=== PATIENT | female | born 1995 | race Caucasian/White ===

== ENCOUNTER 2017-03-11 15:04 | Emergency (ER) | payer BC ==
--- NOTE | 2017-03-11 15:36 | Emergency Department Record ---
History of Present Illness - General Chief Complaint: Shortness of breath Stated Complaint: PABLITO Time Seen by Provider: 03/11/17 15:08 Source: Patient, RN notes reviewed Mode of Arrival: Ambulatory - History of Present Illness Initial Comments: short of breath for three days and it feels like it is hard to take a breath. Patient started a diet pill on thursday(2 days ago) and this breathing problem started 3 days ago and she is under stress because of new job she is starting and it requires driving and she is terrified of driving. MD Complaint: Shortness of breath Onset/Timin -: Days(s) Improves With: Nothing Worsens With: Nothing Associated Symptoms: Denies other symptoms Treatments Prior to Arrival: None - Related Data Home Medications Medication Instructions Recorded Confirmed Last Taken Phentermine HCl 37.5 mg PO ASDIR 03/11/17 03/11/17 Unknown Topiramate 25Mg Tablet [Topiramate] 25 mg PO DAILY 03/11/17 03/11/17 Unknown Previous Rx's Medication Instructions Recorded Hydroxyzine HCl [Atarax] 25 mg PO QID #14 tablet 03/11/17 Allergies Allergy/AdvReac Type Severity Reaction Status Date / Time No Known Drug Allergies Allergy Verified 03/11/17 15:11 Travel Screening - Travel/Exposure Within Last 30 Days Have you traveled within the last 30 days?: No Review of Systems Reviewed: No additional complaints except as noted below Constitutional: Reports: As per HPI. Denies: Chills, Fever, Malaise, Night sweats, Weakness, Weight change Eyes: Reports: As per HPI. Denies: Eye discharge, Eye pain, Photophobia, Vision change ENT: Reports: As per HPI. Denies: Congestion, Dental pain, Ear pain, Epistaxis , Hearing loss, Throat pain Respiratory: Reports: As per HPI. Denies: Cough, Dyspnea, Hemoptysis, Stridor, Wheezes Cardiovascular: Reports: As per HPI. Denies: Arrhythmia, Chest pain, Dyspnea on exertion, Edema, Murmurs, Orthopnea, Palpitations, Paroxysmal nocturnal dyspnea, Rheumatic Fever, Syncope Endocrine: Reports: As per HPI. Denies: Fatigue, Heat or cold intolerance, Polydipsia, Polyuria Gastrointestinal: Reports: As per HPI. Denies: Abdominal pain, Constipation, Diarrhea, Hematemesis, Hematochezia, Melena, Nausea, Vomiting Genitourinary: Reports: As per HPI. Denies: Abnormal menses, Discharge, Dyspareunia, Dysuria, Frequency, Hematuria, Incontinence, Retention, Urgency Musculoskeletal: Reports: As per HPI. Denies: Arthralgia, Back pain, Gout, Joint swelling, Myalgia, Neck pain Skin: Reports: As per HPI. Denies: Bruising, Change in color, Change in hair/ nails, Lesions, Pruritus, Rash Neurological: Reports: As per HPI. Denies: Abnormal gait, Confusion, Headache, Numbness, Paresthesias, Seizure, Tingling, Tremors, Vertigo, Weakness Psychiatric: Reports: As per HPI. Denies: Anxiety, Auditory hallucinations, Depression, Homicidal thoughts, Suicidal thoughts, Visual hallucinations Hematological/Lymphatic: Reports: As per HPI. Denies: Anemia, Blood Clots, Easy bleeding, Easy bruising, Swollen glands Past Medical History - SOCIAL HISTORY Smoking Status: Never smoker Alcohol Use: Occasional Drug Use: None - RESPIRATORY Hx Respiratory Disorders: No - CARDIOVASCULAR Hx Cardio Disorders: No - NEURO Hx Neuro Disorders: Yes Hx Headaches: Yes - GI Hx GI Disorders: No - Hx Genitourinary Disorders: No - ENDOCRINE Hx Endocrine Disorders: No - MUSCULOSKELETAL Hx Musculoskeletal Disorders: No - PSYCH Hx Psych Problems: No - HEMATOLOGY/ONCOLOGY Hx Hematology/Oncology Disorders: No Family Medical History Any Significant Family History?: No Hx Diabetes: Mother, Grandparents Hx Heart Disease: Mother, Grandparents Hx HTN: Father Hx Resp Disorders: Grandparents Physical Exam - General General Appearance: Alert, Oriented x3, Cooperative, No acute distress - Head Head exam: Normal inspection - Eye Eye exam: Normal appearance, PERRL Pupils: Normal accommodation - ENT ENT exam: Normal exam, Mucous membranes moist, Normal external ear exam, Normal orophraynx, TM's normal bilaterally Ear exam: Normal external inspection. negative: External canal tenderness Nasal Exam: Normal inspection. negative: Discharge, Sinus tenderness Mouth exam: Normal external inspection, Tongue normal Teeth exam: Normal inspection. negative: Dental caries Throat exam: Normal inspection. negative: Tonsillar erythema, Tonsillar exudate - Neck Neck exam: Normal inspection, Full ROM. negative: Tenderness - Respiratory Respiratory exam: Normal lung sounds bilaterally. negative: Respiratory distress - Cardiovascular Cardiovascular Exam: Regular rate, Normal rhythm, Normal heart sounds - GI/Abdominal GI/Abdominal exam: Soft, Normal bowel sounds. negative: Tenderness - Rectal Rectal exam: Deferred - exam: Deferred - Extremities Extremities exam: Normal inspection, Full ROM, Normal capillary refill. negative: Tenderness - Back Back exam: Reports: Normal inspection, Full ROM. Denies: Muscle spasm, Rash noted, Tenderness - Neurological Neurological exam: Alert, Normal gait, Oriented X3, Reflexes normal - Psychiatric Psychiatric exam: Normal affect, Normal mood - Skin Skin exam: Dry, Intact, Normal color, Warm Course Vital Signs 03/11/17 15:06 Temperature 98.2 F Pulse Rate 98 H Respiratory 20 Rate Blood Pressure 161/88 Pulse Ox 96 Medical Decision Making - Data Complexity MDM Data: Labs Ordered and/or Reviewed, X-Ray Ordered and/or Reviewed (chest xray neg), EKG Ordered and/or Reviewed (No acute changes) - Lab Data Result diagrams: 03/11/17 15:55 03/11/17 15:55 Disposition Clinical Impression: Anxiety Dyspnea Qualifiers: Dyspnea type: unspecified Qualified Code(s): R06.00 - Dyspnea, unspecified Disposition: Home, Self-Care Condition: (1) Good Instructions: Anxiety (ED) Additional Instructions: follow up with Dr. Malave in one week Prescriptions: Hydroxyzine HCl [Atarax] 25 mg PO QID #14 tablet Forms: Patient Portal Access Time of Disposition: 17:06 Quality - Quality Measures Quality Measures: N/A - Blood Pressure Screening Does Patient Have Any of the Following: No Blood Pressure Classification: Pre-Hypertensive BP Reading Systolic Measurement: 161 Diastolic Measurement: 88 Screening for High Blood Pressure: < Pre-Hypertensive BP, F/U Documented > [ G8950] Pre-Hypertensive Follow-up Interventions: Referral to alternative/primary care provider.
[2017-03-11] MEDS ORDERED: LORAZEPAM 2 MG/ML VIAL IV ONE (15:43)
[2017-03-11 16:04] LABS: BASO % 0.2 % (0-6); EOS % 0.6 % (0-6); GRAN % 60.4 % (47-80); HEMOGLOBIN 13.8 gm/dl (11.6-16.0); LYMPH % 32.4 % (16-45); MEAN CELL VOLUME 80.8 fl (81-97); MEAN CORPUSCULAR HEMOGLOBIN 27.9 pg (27-33); MEAN CORPUSCULAR HGB CONC 34.5 g/dl (32-36); MEAN PLATELET VOLUME 10.8 fl (7.4-10.4); MONO % 6.4 % (0-9); PLATELET COUNT 301 K/uL (130-400); RED BLOOD COUNT 4.95 M/uL (3.80-5.40); RED CELL DISTRIBUTION WIDTH 13.1 % (11.5-14.5)
[2017-03-11 16:23] LABS: BLOOD UREA NITROGEN 8 mg/dL (6-20); CREATININE 0.5 mg/dL (0.5-0.9); EST GLOMERULAR FILTRATION RATE > 60 mL/min
[2017-03-11 16:26] LABS: GLUCOSE,RANDOM 90 mg/dL (74-109)
[2017-03-11] MEDS: LORAZEPAM 0.5 MG TABLET PO ONE (16:28)
[2017-03-11 17:02] LABS: URINE APPEARANCE CLEAR; URINE BILIRUBIN NEGATIVE (NEGATIVE); URINE BLOOD TRACE-I (NEGATIVE); URINE COLOR YELLOW; URINE GLUCOSE (UA) NEGATIVE (NEGATIVE); URINE KETONE NEGATIVE (NEGATIVE); URINE LEUKOCYTE ESTERASE NEGATIVE (NEGATIVE); URINE NITRITE NEGATIVE (NEGATIVE); URINE PROTEIN NEGATIVE (NEGATIVE); URINE UROBILINOGEN 0.2 E.U./dL (0.20 - 1.00)
[2017-03-11 17:05] LABS: URINE MUCUS LIGHT; URINE WBC NONE SEEN (0-2/hpf)
--- NOTE | 2017-03-11 17:08 | Emergency Department Record ---
History of Present Illness - General Chief Complaint: Shortness of breath Stated Complaint: PABLITO Time Seen by Provider: 03/11/17 15:08 Source: Patient, RN notes reviewed Mode of Arrival: Ambulatory - History of Present Illness Onset/Timin -: Days(s) Improves With: Nothing Worsens With: Nothing Associated Symptoms: Denies other symptoms Treatments Prior to Arrival: None - Related Data Home Medications Medication Instructions Recorded Confirmed Last Taken Phentermine HCl 37.5 mg PO ASDIR 03/11/17 03/11/17 Unknown Topiramate 25Mg Tablet [Topiramate] 25 mg PO DAILY 03/11/17 03/11/17 Unknown Previous Rx's Medication Instructions Recorded Hydroxyzine HCl [Atarax] 25 mg PO QID #14 tablet 03/11/17 Allergies Allergy/AdvReac Type Severity Reaction Status Date / Time No Known Drug Allergies Allergy Verified 03/11/17 15:11 Travel Screening - Travel/Exposure Within Last 30 Days Have you traveled within the last 30 days?: No Review of Systems Constitutional: Reports: As per HPI. Denies: Chills, Fever, Malaise, Night sweats, Weakness, Weight change Eyes: Reports: As per HPI. Denies: Eye discharge, Eye pain, Photophobia, Vision change ENT: Reports: As per HPI. Denies: Congestion, Dental pain, Ear pain, Epistaxis , Hearing loss, Throat pain Respiratory: Reports: As per HPI. Denies: Cough, Dyspnea, Hemoptysis, Stridor, Wheezes Cardiovascular: Reports: As per HPI. Denies: Arrhythmia, Chest pain, Dyspnea on exertion, Edema, Murmurs, Orthopnea, Palpitations, Paroxysmal nocturnal dyspnea, Rheumatic Fever, Syncope Endocrine: Reports: As per HPI. Denies: Fatigue, Heat or cold intolerance, Polydipsia, Polyuria Gastrointestinal: Reports: As per HPI. Denies: Abdominal pain, Constipation, Diarrhea, Hematemesis, Hematochezia, Melena, Nausea, Vomiting Genitourinary: Reports: As per HPI. Denies: Abnormal menses, Discharge, Dyspareunia, Dysuria, Frequency, Hematuria, Incontinence, Retention, Urgency Musculoskeletal: Reports: As per HPI. Denies: Arthralgia, Back pain, Gout, Joint swelling, Myalgia, Neck pain Skin: Reports: As per HPI. Denies: Bruising, Change in color, Change in hair/ nails, Lesions, Pruritus, Rash Neurological: Reports: As per HPI. Denies: Abnormal gait, Confusion, Headache, Numbness, Paresthesias, Seizure, Tingling, Tremors, Vertigo, Weakness Psychiatric: Reports: As per HPI. Denies: Anxiety, Auditory hallucinations, Depression, Homicidal thoughts, Suicidal thoughts, Visual hallucinations Hematological/Lymphatic: Reports: As per HPI. Denies: Anemia, Blood Clots, Easy bleeding, Easy bruising, Swollen glands Past Medical History - SOCIAL HISTORY Smoking Status: Never smoker Alcohol Use: Occasional Drug Use: None - RESPIRATORY Hx Respiratory Disorders: No - CARDIOVASCULAR Hx Cardio Disorders: No - NEURO Hx Neuro Disorders: Yes Hx Headaches: Yes - GI Hx GI Disorders: No - Hx Genitourinary Disorders: No - ENDOCRINE Hx Endocrine Disorders: No - MUSCULOSKELETAL Hx Musculoskeletal Disorders: No - PSYCH Hx Psych Problems: No - HEMATOLOGY/ONCOLOGY Hx Hematology/Oncology Disorders: No Family Medical History Any Significant Family History?: No Hx Diabetes: Mother, Grandparents Hx Heart Disease: Mother, Grandparents Hx HTN: Father Hx Resp Disorders: Grandparents Course Vital Signs 03/11/17 15:06 Temperature 98.2 F Pulse Rate 98 H Respiratory 20 Rate Blood Pressure 161/88 Pulse Ox 96 Medical Decision Making - Lab Data Result diagrams: 03/11/17 15:55 03/11/17 15:55 Lab Results 03/11/17 03/11/17 03/11/17 Range/Units 15:55 15:55 16:50 WBC 5.0 (4.2-12.2) K/uL RBC 4.95 (3.80-5.40) M/uL Hgb 13.8 (11.6-16.0) gm/dl Hct 40.0 (35.0-47.0) % MCV 80.8 L (81-97) fl MCH 27.9 (27-33) pg MCHC 34.5 (32-36) g/dl RDW 13.1 (11.5-14.5) % Plt Count 301 (130-400) K/uL MPV 10.8 H (7.4-10.4) fl Gran % 60.4 (47-80) % Lymphocytes % 32.4 (16-45) % Monocytes % 6.4 (0-9) % Eosinophils % 0.6 (0-6) % Basophils % 0.2 (0-6) % Sodium 140 (136-145) mmol/L Potassium 4.0 (3.4-4.5) mmol/L Chloride 103 (98-107) mmol/L Carbon Dioxide 22.0 (22-29) mmol/L Anion Gap 15.0 (7-16) BUN 8 (6-20) mg/dL Creatinine 0.5 (0.5-0.9) mg/dL Estimated GFR > 60 mL/min Random Glucose 90 (74-109) mg/dL Calcium 9.1 (8.6-10.0) mg/dL Troponin T < 0.010 (0-0.010) ng/mL Urine Color Yellow Urine Appearance Clear Urine pH 6.0 (5.0-8.0) Ur Specific Drums 1.025 (1.002-1.030) Urine Protein Negative (NEGATIVE) Urine Glucose (UA) Negative (NEGATIVE) Urine Ketones Negative (NEGATIVE) Urine Blood Trace-i (NEGATIVE) Urine Nitrite Negative (NEGATIVE) Urine Bilirubin Negative (NEGATIVE) Urine Urobilinogen 0.2 (0.20 - 1.00) E.U./dL Ur Leukocyte Esterase Negative (NEGATIVE) Urine RBC 3 - 6 (NONE SEEN) Urine WBC None seen (0-2/hpf) Ur Epithelial Cells 10 - 15 (FEW) Urine Mucus Light Disposition Clinical Impression: Anxiety Dyspnea Qualifiers: Dyspnea type: unspecified Qualified Code(s): R06.00 - Dyspnea, unspecified Disposition: Home, Self-Care Condition: (1) Good Instructions: Anxiety (ED) Additional Instructions: follow up with Dr. Malave in one week Prescriptions: Hydroxyzine HCl [Atarax] 25 mg PO QID #14 tablet Forms: Patient Portal Access Time of Disposition: 17:07 Quality - Quality Measures Quality Measures: N/A - Blood Pressure Screening Does Patient Have Any of the Following: No Blood Pressure Classification: Pre-Hypertensive BP Reading Systolic Measurement: 161 Diastolic Measurement: 88 Screening for High Blood Pressure: < Pre-Hypertensive BP, F/U Documented > [ G8950] Pre-Hypertensive Follow-up Interventions: Referral to alternative/primary care provider.
--- NOTE | 2017-03-12 09:34 | RADIOLOGY REPORT ---
EXAM: CHEST, TWO VIEWS HISTORY: PATIENT HAS SHORTNESS OF BREATH. TECHNIQUE: Two views of the chest are provided without comparison examinations. FINDINGS: The cardiomediastinal silhouette is within normal limits for size and contour. The nancy appear unremarkable. There is no radiographic evidence of a focal infiltrate or pleural effusion. No pneumothorax is noted. IMPRESSION: NO RADIOGRAPHIC EVIDENCE OF AN ACUTE INTRATHORACIC PROCESS. JOB NUMBER: [id number] [facility]
== END 2017-03-11 17:32 | disposition home or self-care (01) ==
LOC: ER 15:04
DX: R06.00 Dyspnea, unspecified (principal); F41.9 Anxiety disorder, unspecified
CPT/HCPCS: 71046; 80048; 81001; 84484; 85025; 93005; 93010; 99284

== ENCOUNTER 2017-08-19 21:48 | Emergency (ER) | payer BC, MEDICAID ==
[2017-08-19] MEDS ORDERED: 0.9 % SODIUM CHLORIDE 1,000 ML BAG IV ONE (22:00)
[2017-08-19] MEDS ORDERED: ONDANSETRON HCL IV 4 MG/2 ML VIAL IVP ONE (22:00)
--- NOTE | 2017-08-19 22:06 | Emergency Department Record ---
History of Present Illness - General Chief complaint: Flank Pain Stated complaint: RT FLANK PAIN Time Seen by Provider: 08/19/17 22:00 Source: Patient Mode of Arrival: Ambulatory Limitations: No limitations - History of Present Illness Initial comments: 21 yo female presents with right flank and RUQ pain for two days. The pain level goes up and down but never leaves. No fever. She has nausea but no vomiting. Eating makes the symptoms worse. No diarrhea. No dysuria. No hematuria. She does have a decreased appetite. No rash. No cough. Her prior history is positive for C section otherwise no abdominal surgery. MD Complaint: Other Onset/Timin -: Days(s) (2) Radiation: R flank, Other Severity: Moderate Severity scale (1-10): 7 Quality: Sharp Consistency: Constant Improves with: Other Worsens with: None Associated Symptoms: Abdominal pain, Nausea/vomiting - Related Data Home Medications Medication Instructions Recorded Confirmed Last Taken Escitalopram Oxalate [Lexapro] 10 mg PO DAILY 08/19/17 08/19/17 Unknown Etonogestrel/Ethinyl Estradiol 1 applic VG DAILY 08/19/17 08/19/17 Unknown [Nuvaring Vaginal Ring] Allergies Allergy/AdvReac Type Severity Reaction Status Date / Time No Known Drug Allergies Allergy Verified 03/11/17 15:11 Travel Screening - Travel/Exposure Within Last 30 Days Have you traveled within the last 30 days?: No - Travel Symptoms Symptom Screening: None Review of Systems Constitutional: Denies: Chills, Fever, Malaise, Weakness Eyes: Denies: Eye discharge, Eye pain, Photophobia, Vision change ENT: Denies: Congestion, Throat pain Respiratory: Denies: Cough, Dyspnea, Hemoptysis, Stridor, Wheezes Cardiovascular: Denies: Chest pain, Palpitations, Syncope Endocrine: Denies: Fatigue, Polydipsia, Polyuria Gastrointestinal: Reports: As per HPI, Abdominal pain, Nausea. Denies: Diarrhea , Vomiting Genitourinary: Denies: Dysuria, Urgency Musculoskeletal: Reports: Back pain. Denies: Arthralgia, Joint swelling, Myalgia Skin: Denies: Bruising, Change in color, Rash Neurological: Denies: Confusion, Headache, Numbness, Weakness Psychiatric: Denies: Anxiety Hematological/Lymphatic: Denies: Anemia, Blood Clots, Easy bleeding, Easy bruising, Swollen glands Past Medical History - SOCIAL HISTORY Smoking Status: Never smoker - RESPIRATORY Hx Respiratory Disorders: No - CARDIOVASCULAR Hx Cardio Disorders: Yes Hx Palpitations: Yes - NEURO Hx Neuro Disorders: Yes Hx Headaches: Yes - GI Hx GI Disorders: No - Hx Genitourinary Disorders: No - ENDOCRINE Hx Endocrine Disorders: No - MUSCULOSKELETAL Hx Musculoskeletal Disorders: No - PSYCH Hx Psych Problems: Yes Hx Anxiety: Yes - HEMATOLOGY/ONCOLOGY Hx Hematology/Oncology Disorders: No Family Medical History Any Significant Family History?: Yes Hx Diabetes: Mother, Grandparents Hx Heart Disease: Mother, Grandparents Hx HTN: Father Hx Resp Disorders: Grandparents Physical Exam - General General Appearance: Alert, Oriented x3, Cooperative, No acute distress Limitations: No limitations - Head Head exam: Atraumatic, Normal inspection - Eye Eye exam: Normal appearance. negative: Conjunctival injection, Scleral icterus - ENT ENT exam: Normal exam, Mucous membranes moist Ear exam: Normal external inspection Nasal Exam: Normal inspection Mouth exam: Normal external inspection - Neck Neck exam: Normal inspection - Respiratory Respiratory exam: Normal lung sounds bilaterally. negative: Respiratory distress - Cardiovascular Cardiovascular Exam: Regular rate, Normal rhythm, Normal heart sounds - GI/Abdominal GI/Abdominal exam: Soft, Tenderness (tender RUQ, right flank) - Rectal Rectal exam: Deferred - exam: Deferred - Extremities Extremities exam: Normal inspection, Full ROM, Normal capillary refill. negative: Tenderness - Back Back exam: Reports: CVA tenderness (R), Full ROM. Denies: CVA tenderness (L), Paraspinal tenderness, Rash noted, Tenderness, Vertebral tenderness - Neurological Neurological exam: Alert, Normal gait, Oriented X3 - Psychiatric Psychiatric exam: Normal affect, Normal mood. negative: Agitated, Anxious - Skin Skin exam: Dry, Intact, Normal color, Warm Course Vital Signs 08/19/17 21:55 Temperature 98.2 F Pulse Rate [ 103 H Pulse Ox Probe] Respiratory 20 Rate Blood Pressure 125/73 [Left Arm] Pulse Ox 99 - Reevaluation(s) Reevaluation #1: 08/19/17 22:07 No prior imaging on EMR 08/19/17 22:50 No acute changes on the labs The HCG is negative 08/20/17 00:05 UA with some blood CT ordered for stone 08/20/17 01:[address] was reviewed. LEFT sided intrarenal stone. No findings to suggest appendicitis. Unremarkable gall bladder. We discussed the results of the tests and questions were answered at the time of discharge. The patient is doing well and is comfortable with DC. DC vitals were reviewed. We discussed at length reasons to immediately return to the ED as well as close follow up. The patient will call the PCP for close follow up of this ED visit to review this visit and the tests performed We discussed that an abdominal US may also help to view the gall bladder in a different way to assess if this is causing her pain. 08/20/17 01:37 Given her pain never completely leaves and is aggravated by food she will return for an US in the AM 08/20/17 01:42 Medical Decision Making - Lab Data Result diagrams: 08/19/17 22:15 08/19/17 22:15 Disposition Disposition: Discharge Clinical Impression: Acute flank pain, RUQ pain Disposition: Home, Self-Care Condition: (1) Good Instructions: Abdominal Pain (ED), Flank Pain (ED) Additional Instructions: Return at 9am for a recheck and abdominal US Return sooner if you have fever, vomiting or pain Do not eat from now until your US Forms: Patient Portal Access Time of Disposition: 01:46 Quality - Quality Measures Quality Measures: N/A - Blood Pressure Screening Does Patient Have Any of the Following: No Blood Pressure Classification: Pre-Hypertensive BP Reading Systolic Measurement: 113 Diastolic Measurement: 82 Screening for High Blood Pressure: < Pre-Hypertensive BP, F/U Documented > [ G8950] Pre-Hypertensive Follow-up Interventions: Referral to alternative/primary care provider.
[2017-08-19 22:25] LABS: BASO % 0.3 % (0-6); EOS % 0.3 % (0-6); GRAN % 62.6 % (47-80); HEMATOCRIT 42.7 % (35.0-47.0); HEMOGLOBIN 14.4 gm/dl (11.6-16.0); LYMPH % 30.5 % (16-45); MEAN CELL VOLUME 83.1 fl (81-97); MEAN CORPUSCULAR HGB CONC 33.7 g/dl (32-36); MEAN PLATELET VOLUME 10.8 fl (7.4-10.4); MONO % 6.3 % (0-9); PLATELET COUNT 281 K/uL (130-400); RED BLOOD COUNT 5.14 M/uL (3.80-5.40); RED CELL DISTRIBUTION WIDTH 13.5 % (11.5-14.5); WHITE BLOOD COUNT W/O DIFF 6.9 K/uL (4.2-12.2)
[2017-08-19 22:37] LABS: BLOOD UREA NITROGEN 6 mg/dL (6-20); CREATININE 0.6 mg/dL (0.5-0.9); EST GLOMERULAR FILTRATION RATE > 60 mL/min
[2017-08-19 22:38] LABS: TOTAL PROTEIN 7.2 g/dL (6.6-8.7)
[2017-08-19 22:40] LABS: GLUCOSE,RANDOM 128 mg/dL (74-109)
[2017-08-19 22:42] LABS: ALT/SGPT 14 U/L (<33)
[2017-08-19 22:43] LABS: ALB/GLOB RATIO 1.4 (1.1-1.8); ALBUMIN 4.2 g/dL (4.0-5.0); ALKALINE PHOSPHATASE 91 U/L (35-104); AST/SGOT 15 U/L (10.0-35.0); LIPASE 39 U/L (13-60)
[2017-08-19 23:45] LABS: URINE APPEARANCE CLEAR; URINE BILIRUBIN NEGATIVE (NEGATIVE); URINE BLOOD TRACE-I (NEGATIVE); URINE COLOR YELLOW; URINE GLUCOSE (UA) NEGATIVE (NEGATIVE); URINE KETONE NEGATIVE (NEGATIVE); URINE LEUKOCYTE ESTERASE NEGATIVE (NEGATIVE); URINE NITRITE NEGATIVE (NEGATIVE); URINE PROTEIN NEGATIVE (NEGATIVE); URINE UROBILINOGEN 0.2 E.U./dL (0.20 - 1.00)
[2017-08-19 23:46] LABS: URINE BACTERIA NONE SEEN; URINE EPITHELIAL CELLS 0 - 2 (FEW); URINE WBC 0 - 2 (0-2/hpf)
--- NOTE | 2017-08-20 15:26 | CT SCAN REPORT ---
EXAM: CT OF THE ABDOMEN AND PELVIS WITHOUT CONTRAST HISTORY: RIGHT UPPER QUADRANT PAIN. TECHNIQUE: Sequential axial images were obtained from the diaphragms through the ischiorectal fossa without intravenous or oral contrast administration. FINDINGS: The visualized lung bases appear normal. The heart size is in the upper limits of normal. The nonopacified liver, gallbladder, pancreas and spleen appear normal. The adrenal glands and kidneys appear normal. There is a nonobstructing calculus in the left kidney measuring 2 mm. The small bowel appears normal. The appendix is visualized and appears normal. The colon appears normal. The uterus and adnexal structures are normal. The urinary bladder is normal. The gaseous structures are normal. IMPRESSION: NONOBSTRUCTING CALCULUS IN THE LEFT KIDNEY. THE REMAINDER OF THE EXAMINATION IS UNREMARKABLE. JOB NUMBER: [id number] [facility]
== END 2017-08-20 01:54 | disposition home or self-care (01) ==
LOC: ER 21:48
DX: R10.11 Right upper quadrant pain (principal); M54.6 Pain in thoracic spine; R11.0 Nausea
CPT/HCPCS: 74176; 80053; 81001; 83690; 84703; 85025; 96374; 99284; J2405; J7030

== ENCOUNTER 2017-08-20 08:50 | Emergency (ER) | payer BC, MEDICAID ==
--- NOTE | 2017-08-20 09:16 | Emergency Department Record ---
History of Present Illness - General Chief Complaint: Recheck - Other Stated Complaint: RUQ PAIN Time Seen by Provider: 08/20/17 08:57 Source: Patient Mode of arrival: Ambulatory Limitations: No limitations - History of Present Illness Initial Comments: The patient is here for recheck due to RUQ AP. The pain is worse after eating and is a sharp cramping pain. She was seen in the ER last night and had a neg workup including labs, urine, and an abdominal CT. Now she is here to have an abdominal US to evaluate her GB. Complaint: Other Onset/Timin -: Days(s) Initial Visit For: Other Returns Today for: Other Symptoms Since Prior Visit: No new symptoms Associated Symptoms: Abdominal pain - Related Data Previous Rx's Medication Instructions Recorded Naproxen [Naprosyn] 250 mg PO BID #14 tablet 08/20/17 Sucralfate [Carafate] 1 gm PO QID #28 tablet 08/20/17 Allergies Allergy/AdvReac Type Severity Reaction Status Date / Time No Known Drug Allergies Allergy Verified 08/20/17 08:54 Travel Screening - Travel/Exposure Within Last 30 Days Have you traveled within the last 30 days?: No - Travel/Exposure Within Last Year Have you traveled outside the [place] in the last year?: No - Additonal Travel Details Have you been exposed to anyone with a communicable illness?: No - Travel Symptoms Symptom Screening: None Review of Systems Constitutional: Denies: Chills, Fever Eyes: Denies: Eye discharge ENT: Denies: Congestion Respiratory: Denies: Cough, Dyspnea Past Medical History - SOCIAL HISTORY Smoking Status: Never smoker Alcohol Use: Occasional Drug Use: None - RESPIRATORY Hx Respiratory Disorders: No - CARDIOVASCULAR Hx Cardio Disorders: Yes Hx Palpitations: Yes - NEURO Hx Neuro Disorders: Yes Hx Headaches: Yes - GI Hx GI Disorders: No - Hx Genitourinary Disorders: No - ENDOCRINE Hx Endocrine Disorders: No - MUSCULOSKELETAL Hx Musculoskeletal Disorders: No - PSYCH Hx Psych Problems: Yes Hx Anxiety: Yes - HEMATOLOGY/ONCOLOGY Hx Hematology/Oncology Disorders: No Family Medical History Any Significant Family History?: Yes Hx Diabetes: Mother, Grandparents Hx Heart Disease: Mother, Grandparents Hx HTN: Father Hx Resp Disorders: Grandparents Physical Exam - General General Appearance: Alert, Oriented x3, Cooperative, No acute distress - Head Head exam: Atraumatic, Normocephalic, Normal inspection - Eye Eye exam: Normal appearance, PERRL - Neck Neck exam: Normal inspection, Full ROM. negative: Tenderness - Respiratory Respiratory exam: Normal lung sounds bilaterally. negative: Respiratory distress - Cardiovascular Cardiovascular Exam: Regular rate, Normal rhythm, Normal heart sounds - GI/Abdominal GI/Abdominal exam: Soft, Tenderness (There is mild RUQ tenderness to palpation.) . negative: Distended, Rigid - Extremities Extremities exam: Normal inspection Course Vital Signs 08/20/17 08:55 Temperature 98.3 F Pulse Rate 78 Respiratory 16 Rate Blood Pressure 119/69 Pulse Ox 99 - Reevaluation(s) Reevaluation #1: The patient is doing better at this time and is resting comfortably. She is still having some pain but it is better. We did discuss the neg US and the need for F/U with her PCP early next week. 08/20/17 11:10 Medical Decision Making - Data Complexity MDM Data: X-Ray Ordered and/or Reviewed - Radiology Data Radiology results: Report reviewed (Abd US: Neg) Disposition Disposition: Discharge Clinical Impression: RUQ pain Disposition: Home, Self-Care Condition: (2) Stable Instructions: Abdominal Pain (ED) Additional Instructions: Please eat a very bland diet with no fatty or fried foods. Please see your family doctor early next week for recheck and take the Naprosyn and Carafate as directed. Please return to the ER for any worsening abdominal pain, fever, or vomiting. Prescriptions: Naproxen [Naprosyn] 250 mg PO BID #14 tablet Sucralfate [Carafate] 1 gm PO QID #28 tablet Forms: Patient Portal Access Time of Disposition: 11:12 Quality - Quality Measures Quality Measures: N/A - Blood Pressure Screening View Details: Yes Does Patient Have Any of the Following: No Blood Pressure Classification: Normal BP Reading Systolic Measurement: 115 Diastolic Measurement: 73 Screening for High Blood Pressure: < Normal BP, F/U Not Required > [G8783]
--- NOTE | 2017-08-21 07:58 | ULTRASOUND REPORT ---
EXAM: ULTRASOUND OF THE ABDOMEN HISTORY: RIGHT UPPER QUADRANT PAIN. TECHNIQUE: Sonographic evaluation of the abdomen was performed using cohen scale imaging. FINDINGS: The liver appears homogeneous. No gallstones or ductal dilatation. The common bile duct measures 3 mm. The pancreas and spleen appear normal. The kidneys are normal in size with no hydronephrosis or nephrolithiasis. The abdominal aorta and inferior vena cava are patent. No free fluid in the abdomen. IMPRESSION: UNREMARKABLE ABDOMINAL SONOGRAM. JOB NUMBER: [id number] [facility]
== END 2017-08-20 11:19 | disposition home or self-care (01) ==
LOC: ER 08:50
DX: R10.11 Right upper quadrant pain (principal)
CPT/HCPCS: 76700; 99283

== ENCOUNTER 2018-02-13 12:18 | Observation (INO) | payer BC, MEDICAID ==
[2018-02-13] MEDS ORDERED: IPRATROPIUM/ALBUTEROL (0.5MG/3MG) NEB INH ONE (12:45)
--- NOTE | 2018-02-13 12:52 | Emergency Department Record ---
History of Present Illness - General Chief Complaint: Difficulty Breathing Stated Complaint: SOB, CHEST PRESSURE Time Seen by Provider: 02/13/18 12:40 Source: Patient Mode of Arrival: Ambulatory Limitations: No limitations - History of Present Illness Initial Comments: The patient is here due to a 10 day hx of feeling like she is not able to take a full breath in. She denies any cough, SOB, PABLITO, or sweating but does have a mid back aching when lying flat. She also denies any pleuritic CP but just feels like her lungs will not expand normally. The patient has had this in the past and was told it was anxiety. She did see her PCP for it and also was told it was anxiety recently. MD Complaint: Shortness of breath Onset/Timin -: Days(s), Week(s) Severity scale (1-10): 4 Quality: Aching Consistency: Constant Improves With: Nothing Worsens With: Lying flat Associated Symptoms: Denies other symptoms Treatments Prior to Arrival: None - Related Data Home Oxygen Therapy: No Allergies Allergy/AdvReac Type Severity Reaction Status Date / Time No Known Drug Allergies Allergy Verified 02/13/18 12:32 Travel Screening - Travel/Exposure Within Last 30 Days Have you traveled within the last 30 days?: No - Travel/Exposure Within Last Year Have you traveled outside the [place] in the last year?: No - Additonal Travel Details Have you been exposed to anyone with a communicable illness?: No - Travel Symptoms Symptom Screening: None Review of Systems Constitutional: Denies: Chills, Fever Eyes: Denies: Eye discharge ENT: Denies: Congestion Respiratory: Reports: Dyspnea. Denies: Cough, Hemoptysis Cardiovascular: Denies: Chest pain Endocrine: Denies: Fatigue Gastrointestinal: Denies: Abdominal pain Genitourinary: Denies: Dysuria Musculoskeletal: Denies: Arthralgia Skin: Denies: Bruising Past Medical History - SOCIAL HISTORY Smoking Status: Never smoker Alcohol Use: Occasional Drug Use: None - RESPIRATORY Hx Respiratory Disorders: No - CARDIOVASCULAR Hx Cardio Disorders: Yes Hx Palpitations: Yes - NEURO Hx Neuro Disorders: Yes Hx Headaches: Yes - GI Hx GI Disorders: No - Hx Genitourinary Disorders: No - ENDOCRINE Hx Endocrine Disorders: No - MUSCULOSKELETAL Hx Musculoskeletal Disorders: No - PSYCH Hx Psych Problems: Yes Hx Anxiety: Yes - HEMATOLOGY/ONCOLOGY Hx Hematology/Oncology Disorders: No Family Medical History Any Significant Family History?: Yes Hx Diabetes: Mother, Grandparents Hx Heart Disease: Mother, Grandparents Hx HTN: Father Hx Resp Disorders: Grandparents Physical Exam - General General Appearance: Alert, Oriented x3, Cooperative, No acute distress - Head Head exam: Atraumatic, Normocephalic, Normal inspection - Eye Eye exam: Normal appearance, PERRL, EOMI - ENT Throat exam: Normal inspection. negative: Tonsillar erythema, Tonsillar exudate - Neck Neck exam: Normal inspection, Full ROM. negative: Tenderness - Respiratory Respiratory exam: Normal lung sounds bilaterally. negative: Rales, Respiratory distress, Rhonchi, Stridor, Wheezes - Cardiovascular Cardiovascular Exam: Regular rate, Normal rhythm, Normal heart sounds - GI/Abdominal GI/Abdominal exam: Soft, Normal bowel sounds. negative: Tenderness - Extremities Extremities exam: Normal inspection, Full ROM, Normal capillary refill. negative: Tenderness - Neurological Neurological exam: Alert. negative: Motor sensory deficit Course Vital Signs 02/13/18 02/13/18 12:33 12:44 Temperature 983 F H 98 F Pulse Rate 87 87 Respiratory 18 18 Rate Blood Pressure 127/87 127/87 Pulse Ox 98 98 - Reevaluation(s) Reevaluation #1: The patient is resting comfortably. She denies any new complaints and denies any CP or SOB. The Neb tx did not seem to change her symptoms. 02/13/18 13:58 Reevaluation #2: The patient is doing very well at this time. I did discuss the positive PE study with her and the need for admission to the hospital and the patient does agree. I then did discuss the case with Yaneli (PRODUCT SAF[employer]Y CONSULTANT) and she does accept the admission for Dr. Posadas. 02/13/18 15:51 Medical Decision Making - Data Complexity MDM Data: Labs Ordered and/or Reviewed, X-Ray Ordered and/or Reviewed, EKG Ordered and/or Reviewed - Lab Data Result diagrams: 02/13/18 13:00 02/13/18 13:00 - EKG Data -: EKG Interpreted by Me EKG: No Acute Changes, Normal EKG - Radiology Data Radiology results: Report reviewed (CXR: Neg. Chest CT: 2 small distal LLL PE' s. ) Disposition Disposition: Admit Clinical Impression: Pulmonary embolism Qualifiers: Pulmonary embolism type: other Chronicity: unspecified Acute cor pulmonale presence: without acute cor pulmonale Qualified Code(s): I26.99 - Other pulmonary embolism without acute cor pulmonale Disposition: Still a Patient at [facility] Decision to Admit: Admit from ER Decision to Admit Date: 02/13/18 Decision to Admit Time: 15:53 Accepting Physician: Katharina Time Discussed w/Accepting Physician: 15:53 Condition: (2) Stable Time of Disposition: 15:53 Quality - Quality Measures Quality Measures: N/A - Blood Pressure Screening View Details: Yes Does Patient Have Any of the Following: No Blood Pressure Classification: Pre-Hypertensive BP Reading Systolic Measurement: 120 Diastolic Measurement: 83 Screening for High Blood Pressure: < Pre-Hypertensive BP, F/U Documented > [ G8950] Pre-Hypertensive Follow-up Interventions: Referral to alternative/primary care provider.
[2018-02-13 13:12] LABS: HEMATOCRIT 43.6 % (35.0-47.0); HEMOGLOBIN 14.7 gm/dl (11.6-16.0); MEAN CELL VOLUME 81.3 fl (81-97); MEAN CORPUSCULAR HEMOGLOBIN 27.4 pg (27-33); MEAN CORPUSCULAR HGB CONC 33.7 g/dl (32-36); MEAN PLATELET VOLUME 10.5 fl (7.4-10.4); PLATELET COUNT 265 K/uL (130-400); RED BLOOD COUNT 5.36 M/uL (3.80-5.40); WHITE BLOOD COUNT W/O DIFF 4.2 K/uL (4.2-12.2)
[2018-02-13 13:21] LABS: BLOOD UREA NITROGEN 9 mg/dL (6-20); CREATININE 0.6 mg/dL (0.5-0.9); EST GLOMERULAR FILTRATION RATE > 60 mL/min
[2018-02-13 13:22] LABS: PLATELET ESTIMATE NORMAL (NORMAL)
[2018-02-13 13:24] LABS: GLUCOSE,RANDOM 84 mg/dL (74-109)
[2018-02-13 13:27] LABS: CREATINE PHOSPHOKINASE 114 U/L (26-192)
[2018-02-13 13:28] LABS: CKMB < 1.0 ng/mL (<3.77)
[2018-02-13] MEDS ORDERED: 0.9 % SODIUM CHLORIDE 1,000 ML BAG IV ONE (14:45)
[2018-02-13] MEDS ORDERED: ENOXAPARIN 100 MG/ML SYR SQ ONE ×2 (15:46→16:36)
[2018-02-13] MEDS: APIXABAN 5MG TABLET PO SCH (23:39)
[2018-02-14] MEDS: APIXABAN 5MG TABLET PO SCH (09:37)
[2018-02-14] MEDS ORDERED: ESCITALOPRAM 10 MG TABLET PO SCH (10:00)
--- NOTE | 2018-02-14 10:29 | History & Physical ---
History of Present Illness - Date of Service Date of Service for History & Physical: 02/14/18 - History of Present Illness Admitting Diagnosis: 1. Acute Pulmonary Embolism. History of Present Illness: 22 yo female presents for OBS for new onset PE r/t nuvaring use. Reports chest tightness since 02/02/18 that increased and woke her up in the night. Has had similar events for the past 4 years but was told she was having panic attacks and sent home from ER. Most recent was 03/11/17 had PABLITO for 3 days while taking Adipex, was seen in ER, CXR neg and d/c'd home. 02/13/18 Pt presents to ER for chest tightness, reporting sensation of having restricted ability to deep breath. Denies recent long travel but is on Nuvaring for control. D-Dimer 0.63, CT chest LLL PEs-non occlusive. BP 161/88, HR 98, RR 20, 96%RA, 98.2F WBC 4.2, Hgb 14.7, Hct 43.6, Plt 265 Na 142, K 3.9, Cl 104, CO2 24, BUN 9, Cr 0.6, GFR >60, glucose 84, CK 114, CKMB <1.0, trop <0.010 Given 500cc NS bolus, duo neb, lovenox 100mg and Eliquis 5mg. OBs admit 02/14/18 Pt resting comfortably in be, reports PABLITO has significantly decreased and is tolerable. Moving all extremities with no difficulty. No resp distress noted, pt able to speak in complete sentences with out difficulty. VSS, labs and CT audio clip reviewed. Pt educated about the risk of DVT and PE with the use of estrogen containing control, denies long travel or smoking. Has d/c'd nuvaring and will have get vasectomy for control. To follow up with PCP in 1 week. Pt does not currently have an appt but will call tomorrow morning or go into office to req appt if necessary. Will give 2 weeks of Eliquis pending f/u, pt will call MED/SURG if she has difficulty with prescription coverage. PCP [facility] Travel Screening - Travel/Exposure Within Last 30 Days Have you traveled within the last 30 days?: No - Travel/Exposure Within Last Year Have you traveled outside the [place] in the last year?: No - Additonal Travel Details Have you been exposed to anyone with a communicable illness?: No - Travel Symptoms Symptom Screening: None Review of Systems Constitutional: Denies: Chills, Fever Eyes: Denies: Eye discharge ENT: Denies: Congestion Respiratory: Reports: Dyspnea. Denies: Cough, Hemoptysis Cardiovascular: Denies: Chest pain Endocrine: Denies: Fatigue Gastrointestinal: Denies: Abdominal pain Genitourinary: Denies: Dysuria Musculoskeletal: Denies: Arthralgia Skin: Denies: Bruising Past Medical History - SOCIAL HISTORY Smoking Status: Never smoker Alcohol Use: Occasional Drug Use: None - RESPIRATORY Hx Respiratory Disorders: No - CARDIOVASCULAR Hx Cardio Disorders: Yes Hx Palpitations: Yes - NEURO Hx Neuro Disorders: Yes Hx Headaches: Yes - GI Hx GI Disorders: No - Hx Genitourinary Disorders: No - ENDOCRINE Hx Endocrine Disorders: No - MUSCULOSKELETAL Hx Musculoskeletal Disorders: No - PSYCH Hx Psych Problems: Yes Hx Anxiety: Yes - HEMATOLOGY/ONCOLOGY Hx Hematology/Oncology Disorders: No Family Medical History Any Significant Family History?: Yes Hx Diabetes: Mother, Grandparents Hx Heart Disease: Mother, Grandparents Hx HTN: Father Hx Resp Disorders: Grandparents H&P Meds/Allergies - Allergies Allergies: Allergies Allergy/AdvReac Type Severity Reaction Status Date / Time No Known Drug Allergies Allergy Verified 02/13/18 12:32 - Active Medications Active Medications: Current Medications Apixaban (Eliquis) 10 mg PO BID [facility] Stop: 02/20/18 10:01 Last Admin: 02/14/18 09:37 Dose: 10 mg Apixaban (Eliquis) 5 mg PO BID [facility] Escitalopram Oxalate (Lexapro) 10 mg PO DAILY [facility] Last Admin: 02/14/18 09:37 Dose: 10 mg Physical Exam - Vital Signs Vital Signs: Vital Signs - Last 24 Hrs Temp Pulse Pulse Resp BP BP Pulse Ox 02/14/18 09:03 98.1 F 72 16 129/67 98 02/14/18 09:00 72 16 02/14/18 06:00 97.9 F 70 17 114/68 98 02/14/18 02:00 98.6 F 79 16 142/88 98 02/13/18 22:00 98.7 F 85 16 148/83 98 02/13/18 21:00 16 02/13/18 18:36 99.2 F 82 18 153/89 97 02/13/18 18:07 70 18 02/13/18 16:40 98.6 F 70 18 141/87 98 02/13/18 16:01 87 18 120/83 98 02/13/18 13:16 70 16 98 02/13/18 12:44 98 F 87 18 127/87 98 02/13/18 12:33 983 F H 87 18 127/87 98 - General General Appearance: Alert, Oriented x3, Cooperative, No acute distress Limitations: No limitations - Head Head exam: Atraumatic, Normocephalic, Normal inspection - Eye Eye exam: Normal appearance, PERRL, EOMI - ENT ENT exam: Normal exam Nasal Exam: Normal inspection Mouth exam: Normal external inspection Teeth exam: Normal inspection Throat exam: Normal inspection. negative: Tonsillar erythema, Tonsillar exudate - Neck Neck exam: Normal inspection, Full ROM. negative: Tenderness - Respiratory Respiratory exam: Normal lung sounds bilaterally. negative: Rales, Respiratory distress, Rhonchi, Stridor, Wheezes - Cardiovascular Cardiovascular Exam: Regular rate, Normal rhythm, Normal heart sounds Peripheral Pulses: 2+: Radial (R), Radial (L), Dorsalis Pedis (R), Dorsalis Pedis (L) - GI/Abdominal GI/Abdominal exam: Soft, Normal bowel sounds. negative: Tenderness - Rectal Rectal exam: Deferred - exam: Deferred - Extremities Extremities exam: Normal inspection, Full ROM, Normal capillary refill. negative: Tenderness - Back Back exam: Reports: Normal inspection - Neurological Neurological exam: Alert, CN II-XII intact, Normal gait, Oriented X3. negative : Motor sensory deficit - Psychiatric Psychiatric exam: Normal affect, Normal mood - Skin Skin exam: Dry, Intact, Normal color, Warm Results - Labs Result Diagrams: 02/13/18 13:00 02/13/18 13:00 Labs Last 24 Hours: Laboratory Results - last 24 hr 02/13/18 02/13/18 02/13/18 13:00 13:00 13:00 WBC 4.2 RBC 5.36 Hgb 14.7 Hct 43.6 MCV 81.3 MCH 27.4 MCHC 33.7 RDW 14.0 Plt Count 265 MPV 10.5 H Neutrophils % 49.0 Eosinophils % Not Reportable Basophils % Not Reportable Lymphocytes 34.0 Monocytes 15.0 H Platelet Estimate Normal RBC Morphology Normal Eosinophil Count 2.0 D-Dimer 0.63 H Sodium 142 Potassium 3.9 Chloride 104 Carbon Dioxide 24.0 Anion Gap 14.0 BUN 9 Creatinine 0.6 Estimated GFR > 60 Random Glucose 84 Calcium 9.2 Creatine Kinase 114 CK-MB (CK-2) < 1.0 Troponin T < 0.010 - Imaging and Cardiology CT scan - chest Status: Pending (audio clip reviewed) VTE H&P Assessment - Risk for VTE Risk for VTE: Yes Risk Level: High Risk Assessment Date: 02/14/18 Risk Assessment Time: 10:30 VTE Orders Placed or Will Be Placed: Yes Plan - Detailed Diagnosis and Plan (1) Pulmonary embolism Current Visit: Yes Status: Acute Qualifiers: Pulmonary embolism type: other Chronicity: unspecified Acute cor pulmonale presence: without acute cor pulmonale Qualified Code(s): I26.99 - Other pulmonary embolism without acute cor pulmonale Base Code: I26.99 - OTHER PULMONARY EMBOLISM WITHOUT ACUTE COR PULMONALE Comment: 02/14/18 -Started Eliquis 5mg BID, continue medicatin for 6 months -avoid all estrogen continaing products -seek alternative BC options report any CP, PABLITO, SOB (2) Full code status Current Visit: Yes Status: Acute Base Code: Z78.9 - OTHER SPECIFIED HEALTH STATUS Comment: 02/14/18 full code
--- NOTE | 2018-02-14 10:39 | Discharge Summary ---
Providers Discharge Summary Date: 02/14/18 Date of admission: 02/13/18 16:10 Expected Date of Discharge: 02/14/18 Attending physician: FILIPPO CERRATO Primary care physician: OUSMANE COLLINS D.O. Physical Exam - Vital Signs Vital Signs: Vital Signs - Last 24 Hrs Temp Pulse Pulse Resp BP BP Pulse Ox 02/14/18 09:03 98.1 F 72 16 129/67 98 02/14/18 09:00 72 16 02/14/18 06:00 97.9 F 70 17 114/68 98 02/14/18 02:00 98.6 F 79 16 142/88 98 02/13/18 22:00 98.7 F 85 16 148/83 98 02/13/18 21:00 16 02/13/18 18:36 99.2 F 82 18 153/89 97 02/13/18 18:07 70 18 02/13/18 16:40 98.6 F 70 18 141/87 98 02/13/18 16:01 87 18 120/83 98 02/13/18 13:16 70 16 98 02/13/18 12:44 98 F 87 18 127/87 98 02/13/18 12:33 983 F H 87 18 127/87 98 - General General Appearance: Alert, Oriented x3, Cooperative, No acute distress Limitations: No limitations - Head Head exam: Atraumatic, Normocephalic, Normal inspection Head exam detail: negative: Abrasion, Contusion - Eye Eye exam: Normal appearance, PERRL, EOMI - ENT ENT exam: Normal exam Nasal Exam: Normal inspection Mouth exam: Normal external inspection Teeth exam: Normal inspection Throat exam: Normal inspection. negative: Tonsillar erythema, Tonsillar exudate - Neck Neck exam: Normal inspection, Full ROM. negative: Tenderness - Respiratory Respiratory exam: Normal lung sounds bilaterally. negative: Rales, Respiratory distress, Rhonchi, Stridor, Wheezes - Cardiovascular Cardiovascular Exam: Regular rate, Normal rhythm, Normal heart sounds Peripheral Pulses: 2+: Radial (R), Radial (L), Dorsalis Pedis (R), Dorsalis Pedis (L) - GI/Abdominal GI/Abdominal exam: Soft, Normal bowel sounds. negative: Tenderness - Rectal Rectal exam: Deferred - exam: Deferred - Extremities Extremities exam: Normal inspection, Full ROM, Normal capillary refill. negative: Tenderness - Back Back exam: Reports: Normal inspection - Neurological Neurological exam: Alert, CN II-XII intact, Normal gait, Oriented X3. negative : Motor sensory deficit - Psychiatric Psychiatric exam: Normal affect, Normal mood - Skin Skin exam: Dry, Intact, Normal color, Warm Hospitalization - Hospitalization Admission Diagnosis: 1. Acute Pulmonary Embolism. - Problem List/Discharge Diagnosis (1) Pulmonary embolism Current Visit: Yes Status: Acute Discharge Diagnosis: Pulmonary embolism type: other Chronicity: unspecified Acute cor pulmonale presence: without acute cor pulmonale Qualified Code(s): I26.99 - Other pulmonary embolism without acute cor pulmonale Base Code: I26.99 - OTHER PULMONARY EMBOLISM WITHOUT ACUTE COR PULMONALE Comment: 02/14/18 -Started Eliquis 5mg BID, continue medicatin for 6 months -avoid all estrogen continaing products -seek alternative BC options report any CP, PABLITO, SOB (2) Full code status Current Visit: Yes Status: Acute Base Code: Z78.9 - OTHER SPECIFIED HEALTH STATUS Comment: 02/14/18 full code - Hospitalization Course Disposition: Home, Self-Care Hospital Course: 22 yo female presents for OBS for new onset PE r/t nuvaring use. Reports chest tightness since 02/02/18 that increased and woke her up in the night. Has had similar events for the past 4 years but was told she was having panic attacks and sent home from ER. Most recent was 03/11/17 had PABLITO for 3 days while taking Adipex, was seen in ER, CXR neg and d/c'd home. 02/13/18 Pt presents to ER for chest tightness, reporting sensation of having restricted ability to deep breath. Denies recent long travel but is on Nuvaring for control. D-Dimer 0.63, CT chest LLL PEs-non occlusive. BP 161/88, HR 98, RR 20, 96%RA, 98.2F WBC 4.2, Hgb 14.7, Hct 43.6, Plt 265 Na 142, K 3.9, Cl 104, CO2 24, BUN 9, Cr 0.6, GFR >60, glucose 84, CK 114, CKMB <1.0, trop <0.010 Given 500cc NS bolus, duo neb, lovenox 100mg and Eliquis 5mg. OBs admit 02/14/18 Pt resting comfortably in be, reports PABLITO has significantly decreased and is tolerable. Moving all extremities with no difficulty. No resp distress noted, pt able to speak in complete sentences with out difficulty. VSS, labs and CT audio clip reviewed. Pt educated about the risk of DVT and PE with the use of estrogen containing control, denies long travel or smoking. Has d/c'd nuvaring and will have get vasectomy for control. To follow up with PCP in 1 week. Pt does not currently have an appt but will call tomorrow morning or go into office to req appt if necessary. Will give 2 weeks of Eliquis pending f/u, pt will call MED/SURG if she has difficulty with prescription coverage. PCP Marjovana Procedures: Imaging and X-Rays 02/13/18 12:45 CHEST 2 VIEWS [RAD] Stat 02/13/18 14:47 CHEST CTA w contrast [CTA] Stat Cardiology Procedures 02/13/18 12:45 EKG NOW Abnormal Labs: Abnormal Lab Results 02/13/18 02/13/18 Range/Units 13:00 13:00 MPV 10.5 H (7.4-10.4) fl Monocytes 15.0 H (0-9) % D-Dimer 0.63 H (0-0.59) mg/L FEU Condition at Discharge: (2) Stable Discharge Diagnosis: PE r/t estrogen use for control Discharge Medications - Discharge Medications Prescriptions: Apixaban [Eliquis] 10 mg PO BID 13 Days #26 tablet Home Medications: Ambulatory Orders Escitalopram Oxalate [Lexapro] 10 mg PO DAILY 08/19/17 [Last Taken 02/13/18] Apixaban [Eliquis] 10 mg PO BID 13 Days #26 tablet 02/14/18 [Last Taken Unknown] Discharge Plan - Discharge Instructions Activity at Discharge: Increase Activity as Tolerated Diet at Discharge: Regular Diet Instructions: Pulmonary Embolism (GEN) Additional Instructions: STOP using your nuvaring, this is suspected to be a large factor in your recent pulmonary emboli (blood clots in the lungs) CONTINUE your Eliquis, this will need to be continued for about 6 months (or shorter determined by follow up with your PCP) Eliquis dosing 10mg (2 tabs 5mg) twice a day for 6 more days, then 5mg twice a day for the remainder of your treatment. This is a blood thinner but it is not restrictive on diet, you can eat a healthy , well balanced diet without fear of interacting with the medication. Blood thinners have risk vs benefit, it is being used to treat your blood clots but it has a risk of bleeding through out the body. You will probably notice easy bruising and a slightly longer time to stop small cuts from bleeding. Any injury to the head needs to be evaluated by a medical professional when you are on blood thinners. If you hit your head hard enough to lose consciousness, you need to go to ER Follow up with PCP within 1-2 week, you have only been given 2 weeks of medication, this needs to be monitored and continued for treatment. Call the MED /SURG unit if you have difficulty getting your RX filled after discharge. Quality Measures - Quality Measures Quality Measures: Documentation of Current Medications in Medical Record, Screening for High Blood Pressure and F/U Documented - Current Medications Quality Measure: Measure #130: Documentation of Current Medications Documentation of Current Medications: <Current Medications Documented/Reviewed> [G8427] - Blood Pressure Screening Quality Measure: Screening for High Blood Pressure and Follow-Up Documented Does Patient Have Any of the Following: No Blood Pressure Classification: Pre-Hypertensive BP Reading Systolic Measurement: 120 Diastolic Measurement: 83 Screening for High Blood Pressure: < Pre-Hypertensive BP, F/U Documented > [ G8950] Pre-Hypertensive Follow-up Interventions: Referral to alternative/primary care provider. - Elder Abuse Suspicion Index EASI Reference Information: Michael ASHER, Raad C, Shruthi D, Dom Heredia.Development and validation of a tool to assist physicians identification of elder abuse: The Elder Abuse Suspicion Index (EASI ). Journal of Elder Abuse and Neglect, 2008; 20 (3): 276-300.
--- NOTE | 2018-02-14 19:48 | RADIOLOGY REPORT ---
EXAM: CHEST 2 VIEWS HISTORY: CHEST HEAVINESS AND DIFFICULTY BREATHING. TECHNIQUE: Two views of the chest. COMPARISON: Chest radiograph 03/11/2017. FINDINGS: Cardiac silhouette within normal size limits. No focal pulmonary consolidation. No pleural effusion or pneumothorax. IMPRESSION: NO ACUTE LUNG FINDINGS. JOB NUMBER: [id number] [facility]
--- NOTE | 2018-02-14 20:08 | CT ANGIOGRAM REPORT ---
EXAM: CT ANGIOGRAM CHEST CTA w contrast HISTORY: CHEST DISCOMFORT AND PRESSURE. DIFFICULTY BREATHING AND ELEVATED D- DIMER. TECHNIQUE: Standard CT angiography of the chest was performed with postprocessing following the bolus administration of 71 mL of Omnipaque-350. Additional coronal and sagittal maximum-intensity projection reformatted images were performed on an independent workstation under concurrent supervision. COMPARISON: None. FINDINGS: There are a few tiny nonocclusive emboli within left lower lobe pulmonary arterial branches. No other emboli are identified. The heart and aorta are normal. There is no mediastinal or hilar lymphadenopathy. Calcified left hilar lymph nodes are present. There are a few calcified granulomas within the left upper lobe. There are no acute infiltrates or areas of consolidation. There is no pneumothorax or effusion. The chest wall and axillary regions are normal. The upper abdomen is unremarkable. There are no acute osseous abnormalities. IMPRESSION: A FEW TINY NONOCCLUSIVE EMBOLI ARE PRESENT WITHIN LEFT LOWER LOBE PULMONARY ARTERIAL BRANCHES. NO OTHER ACUTE FINDINGS. JOB NUMBER: [id number] [facility]
[2018-02-20] MEDS ORDERED: APIXABAN 5MG TABLET PO SCH (22:00)
== END 2018-02-14 13:00 | disposition home or self-care (01) ==
LOC: ER 12:18 → MEDSURG 16:10
PROVIDERS: ADMIT Internal Medicine; ATTEND Internal Medicine
DX: I26.99 Other pulmonary embolism without acute cor pulmonale (principal)
CPT/HCPCS: 99285 ×2; 96372; 82550; 82553; 80048; 84484; 85379; 85027; 71046; 71275; 94640; 93005; 93010; G0378 ×2; Q9967; J3490 ×2; 99220; J1650; J7030

== ENCOUNTER 2018-02-15 21:29 | Emergency (ER) | payer BC, MEDICAID ==
--- NOTE | 2018-02-15 22:03 | Emergency Department Record ---
History of Present Illness - General Chief Complaint: General Stated Complaint: CHEST PRESSURE,HEAVY VAGINAL BLEEDING Time Seen by Provider: 02/15/18 21:48 Source: Patient Mode of Arrival: Ambulatory Limitations: No limitations - History of Present Illness Initial comments: 22 yo female presents to ED for evaluation of recurrent chest discomfort and "heavy vaginal bleeding" that began this evening. Patient was started on Eliquis 2 days ago following diagnosis of (2) small peripheral PE's on chest CTA. Patient denies feeling faint or dizzy, denies shortness of breath symptoms. Patient reports that she is early for her regular menses and going through "2 pads/hour". Onset/Timin -: Days(s) Location: Genitals Radiation: Non-Radiating Consistency: Constant Improves with: None Worsens with: None Associated Symptoms: Chest pain Treatments Prior to Arrival: Other - Reggie Coma Scale Eye Response: (4) Open spontaneously Motor Response: (6) Obeys commands Verbal Response: (5) Oriented [place] Total: 15 - Related Data Previous Rx's Medication Instructions Recorded Apixaban [Eliquis] 10 mg PO BID 13 Days #26 tablet 02/14/18 Allergies Allergy/AdvReac Type Severity Reaction Status Date / Time No Known Drug Allergies Allergy Verified 02/13/18 12:32 Travel Screening - Travel/Exposure Within Last 30 Days Have you traveled within the last 30 days?: No - Travel/Exposure Within Last Year Have you traveled outside the [place] in the last year?: No - Additonal Travel Details Have you been exposed to anyone with a communicable illness?: No - Travel Symptoms Symptom Screening: None Review of Systems Constitutional: Denies: Chills, Fever, Malaise, Night sweats Eyes: Denies: Eye discharge, Eye pain ENT: Denies: Congestion, Ear pain, Epistaxis Respiratory: Denies: Cough, Dyspnea Cardiovascular: Reports: Chest pain. Denies: Dyspnea on exertion Endocrine: Denies: Fatigue, Heat or cold intolerance Gastrointestinal: Denies: Abdominal pain, Nausea, Vomiting Genitourinary: Reports: Abnormal menses. Denies: Incontinence, Retention Musculoskeletal: Denies: Arthralgia, Back pain, Gout, Joint swelling Skin: Denies: Bruising, Change in color, Change in hair/nails Neurological: Denies: Abnormal gait, Confusion, Headache, Seizure Psychiatric: Denies: Anxiety Hematological/Lymphatic: Reports: Blood Clots, Easy bleeding, Easy bruising. Denies: Anemia Past Medical History - SOCIAL HISTORY Smoking Status: Never smoker Alcohol Use: None Drug Use: None - RESPIRATORY Hx Respiratory Disorders: No - CARDIOVASCULAR Hx Cardio Disorders: Yes Hx Palpitations: Yes - NEURO Hx Neuro Disorders: Yes Hx Headaches: Yes - GI Hx GI Disorders: No - Hx Genitourinary Disorders: No - ENDOCRINE Hx Endocrine Disorders: No Hx Diabetes: No Hx Thyroid Disease: No - MUSCULOSKELETAL Hx Musculoskeletal Disorders: No - PSYCH Hx Psych Problems: Yes Hx Anxiety: Yes - HEMATOLOGY/ONCOLOGY Hx Hematology/Oncology Disorders: Yes Comment:: pulmonary embolisms Family Medical History Any Significant Family History?: No Hx Diabetes: Mother, Grandparents Hx Heart Disease: Mother, Grandparents Hx HTN: Father Hx Resp Disorders: Grandparents Physical Exam - General General Appearance: Alert, Oriented x3, Cooperative, No acute distress, Other ( Patient ambulates easily to the room, smiling, well appearing, no clinical evidence for anemia or respiratory distress noted on examination.) Limitations: No limitations - Head Head exam: Atraumatic, Normocephalic, Normal inspection Head exam detail: negative: Abrasion, Contusion, Alfaro's sign, General tenderness, Hematoma, Laceration - Eye Eye exam: Normal appearance. negative: Conjunctival injection, Periorbital swelling, Periorbital tenderness, Scleral icterus - ENT Ear exam: negative: Auricular hematoma, Auricular trauma Nasal Exam: negative: Active bleeding, Discharge, Dried blood, Foreign body Mouth exam: negative: Drooling, Laceration, Muffled voice, Tongue elevation - Neck Neck exam: Normal inspection. negative: Meningismus, Tenderness - Respiratory Respiratory exam: Normal lung sounds bilaterally. negative: Rales, Respiratory distress, Rhonchi, Stridor - Cardiovascular Cardiovascular Exam: Regular rate, Normal rhythm, Normal heart sounds - GI/Abdominal GI/Abdominal exam: Soft. negative: Rebound, Rigid, Tenderness - Rectal Rectal exam: Deferred - exam: Vaginal bleeding (Mild dark blood present, no clots present, no arterial bleeding noted on examination.). negative: Vaginal discharge, Vaginal erythema - Extremities Extremities exam: Normal inspection. negative: Pedal edema, Tenderness - Back Back exam: Denies: CVA tenderness (R), CVA tenderness (L) - Neurological Neurological exam: Alert, Normal gait, Oriented X3 - Psychiatric Psychiatric exam: Normal affect, Normal mood - Skin Skin exam: Normal color. negative: Abrasion Type of lesion: negative: abrasion Course Vital Signs 02/15/18 21:44 Temperature 99.1 F Pulse Rate 103 H Respiratory 20 Rate Blood Pressure 144/89 Pulse Ox 99 - Reevaluation(s) Reevaluation #1: 02/15/18 22:03 Recent records were reviewed: CTA positive for LLL PE x 2, Hgb 14.7, started on Eliquis and discharged yesterday. Will draw laboratory studies and perform pelvic examination. Reevaluation #2: 02/15/18 22:53 Laboratory studies were reviewed, Hgb 13.9 (previous 14.7). Labs are overall grossly unremarkable for an acute process. Patient's vaginal bleeding is well controlled, and the patient is overall well appearing and stable for discharge at this time. Medical Decision Making - Lab Data Result diagrams: 02/15/18 22:20 02/15/18 22:20 Disposition Disposition: Discharge Clinical Impression: Dysfunctional uterine bleeding, Anticoagulation adequate with anticoagulant therapy Disposition: Home, Self-Care Condition: (2) Stable Instructions: Dysfunctional Uterine Bleeding (ED) Additional Instructions: Return to ED if your symptoms worsen or if you have any concerns. Continue Eliquis as directed. Follow-up with your family doctor in 3-5 days as directed. Forms: Patient Portal Access Time of Disposition: 22:54 Quality - Quality Measures Quality Measures: N/A - Blood Pressure Screening Does Patient Have Any of the Following: No Blood Pressure Classification: Pre-Hypertensive BP Reading Systolic Measurement: 144 Diastolic Measurement: 89 Screening for High Blood Pressure: < Pre-Hypertensive BP, F/U Documented > [ G8950] Pre-Hypertensive Follow-up Interventions: Referral to alternative/primary care provider.
[2018-02-15 22:28] LABS: BASO % 0.4 % (0-6); EOS % 0.6 % (0-6); GRAN % 62.6 % (47-80); HEMATOCRIT 41.4 % (35.0-47.0); HEMOGLOBIN 13.9 gm/dl (11.6-16.0); LYMPH % 30.9 % (16-45); MEAN CELL VOLUME 81.8 fl (81-97); MEAN CORPUSCULAR HEMOGLOBIN 27.5 pg (27-33); MEAN CORPUSCULAR HGB CONC 33.6 g/dl (32-36); MEAN PLATELET VOLUME 10.4 fl (7.4-10.4); MONO % 5.5 % (0-9); PLATELET COUNT 286 K/uL (130-400); RED BLOOD COUNT 5.06 M/uL (3.80-5.40); RED CELL DISTRIBUTION WIDTH 13.6 % (11.5-14.5); WHITE BLOOD COUNT W/O DIFF 7.2 K/uL (4.2-12.2)
[2018-02-15 22:40] LABS: BLOOD UREA NITROGEN 8 mg/dL (6-20); CREATININE 0.6 mg/dL (0.5-0.9); EST GLOMERULAR FILTRATION RATE > 60 mL/min
[2018-02-15 22:41] LABS: TOTAL PROTEIN 7.5 g/dL (6.6-8.7)
[2018-02-15 22:43] LABS: GLUCOSE,RANDOM 111 mg/dL (74-109)
[2018-02-15 22:45] LABS: ALB/GLOB RATIO 1.3 (1.1-1.8); ALBUMIN 4.3 g/dL (4.0-5.0); ALT/SGPT 30 U/L (<33); AST/SGOT 23 U/L (10.0-35.0)
[2018-02-15 22:46] LABS: ALKALINE PHOSPHATASE 104 U/L (45-87)
== END 2018-02-15 23:13 | disposition home or self-care (01) ==
LOC: ER 21:29
DX: N93.8 Other specified abnormal uterine and vaginal bleeding (principal); R07.89 Other chest pain; I26.99 Other pulmonary embolism without acute cor pulmonale; Z79.01 Long term (current) use of anticoagulants
CPT/HCPCS: 80053; 85025; 99284

== ENCOUNTER 2018-03-02 14:24 | Emergency (ER) | payer BC, MEDICAID ==
--- NOTE | 2018-03-02 14:40 | Emergency Department Record ---
History of Present Illness - General Chief Complaint: Cough Stated Complaint: COUGHING UP BLOOD Time Seen by Provider: 03/02/18 14:29 Source: Patient Mode of Arrival: Ambulatory Limitations: No limitations - History of Present Illness Initial Comments: 22 yo female presents with two episodes of coughing up blood. The first episode occurred at 2am. The second time it occurred at 7am. She has not had any recurrence in the last 7-8 hours. She had preceding chest discomfort than she stated was like a heaviness that started around midnight. She states both times the blood was about the size of a quarter. She was diagnosed on 02/13 with pulmonary emboli. She is on Eliquis. She was on Nuvaring. No recent respiratory symptoms or preceding cough. She had a small amount of bloody nose but this occurred after the blood she coughed up. MD Complaint: Cough (with blood ) Onset/Timin -: Days(s) (1) Severity: Mild Quality: Other Consistency: Intermittent, Now resolved Improves With: Nothing Worsens With: Coughing, Other (Epistaxis) Known History Of: Other (PE diagnosed 02/13) Associated Symptoms: Chest pain (heavy), Cough, Hemoptysis - Related Data Home Oxygen Therapy: No Previous Rx's Medication Instructions Recorded Apixaban [Eliquis] 10 mg PO BID 13 Days #26 tablet 02/14/18 Allergies Allergy/AdvReac Type Severity Reaction Status Date / Time No Known Drug Allergies Allergy Verified 02/13/18 12:32 Travel Screening - Travel/Exposure Within Last 30 Days Have you traveled within the last 30 days?: No Review of Systems Constitutional: Denies: Chills, Fever, Malaise, Weakness Eyes: Denies: Eye discharge ENT: Denies: Congestion, Throat pain Respiratory: Reports: Cough, Hemoptysis. Denies: Dyspnea, Stridor, Wheezes Cardiovascular: Denies: Chest pain, Palpitations, Syncope Endocrine: Denies: Fatigue Gastrointestinal: Denies: Abdominal pain, Diarrhea, Nausea, Vomiting Genitourinary: Denies: Dysuria Musculoskeletal: Denies: Arthralgia, Back pain, Myalgia Skin: Denies: Bruising, Change in color, Rash Neurological: Denies: Confusion Psychiatric: Denies: Anxiety Hematological/Lymphatic: Denies: Easy bleeding, Easy bruising Past Medical History - SOCIAL HISTORY Smoking Status: Never smoker Alcohol Use: None Drug Use: None - RESPIRATORY Hx Respiratory Disorders: Yes Hx Pulmonary Embolism: Yes - CARDIOVASCULAR Hx Cardio Disorders: Yes Hx Palpitations: Yes - NEURO Hx Neuro Disorders: Yes Hx Headaches: Yes - GI Hx GI Disorders: No - Hx Genitourinary Disorders: No - ENDOCRINE Hx Endocrine Disorders: No Hx Diabetes: No Hx Thyroid Disease: No - MUSCULOSKELETAL Hx Musculoskeletal Disorders: No - PSYCH Hx Psych Problems: Yes Hx Anxiety: Yes - HEMATOLOGY/ONCOLOGY Hx Hematology/Oncology Disorders: Yes Comment:: pulmonary embolisms Family Medical History Any Significant Family History?: Yes Hx Diabetes: Mother, Grandparents Hx Heart Disease: Mother, Grandparents Hx HTN: Father Hx Resp Disorders: Grandparents Physical Exam - General General Appearance: Alert, Oriented x3, Cooperative, No acute distress Limitations: No limitations - Head Head exam: Atraumatic, Normal inspection - Eye Eye exam: Normal appearance. negative: Conjunctival injection - ENT ENT exam: Normal exam, Mucous membranes moist Ear exam: Normal external inspection Nasal Exam: Normal inspection Mouth exam: Normal external inspection Teeth exam: Normal inspection Throat exam: Normal inspection. negative: Tonsillar erythema, Tonsillomegaly, Tonsillar exudate, R peritonsillar mass, L peritonsillar mass - Neck Neck exam: Normal inspection - Respiratory Respiratory exam: Normal lung sounds bilaterally. negative: Accessory muscle use, Decreased breath sounds, Respiratory distress, Rhonchi, Stridor, Wheezes - Cardiovascular Cardiovascular Exam: Regular rate, Normal rhythm, Normal heart sounds Peripheral Pulses: 2+: Radial (R), Radial (L) - GI/Abdominal GI/Abdominal exam: Soft. negative: Tenderness - Rectal Rectal exam: Deferred - exam: Deferred - Extremities Extremities exam: Normal inspection - Back Back exam: Denies: CVA tenderness (R), CVA tenderness (L) - Neurological Neurological exam: Alert, Oriented X3 - Psychiatric Psychiatric exam: Normal affect, Normal mood - Skin Skin exam: Dry, Intact, Normal color, Warm Course Vital Signs 03/02/18 14:27 Temperature 98.5 F Pulse Rate 105 H Respiratory 18 Rate Blood Pressure 154/98 Pulse Ox 100 - Reevaluation(s) Reevaluation #1: 03/02/18 14:46 EKG 14:34 NSR, rate 90, intervals normal, axis normal, ST normal Non specific [id number] 03/02/18 14:49 No changes on the EKG 03/11/17 same non specific [id number] 03/02/18 15:14 The labs were reviewed. No acute abnormalities Given her abrupt onset of discomfort last night were discussed risk/benefit of repeat CT scan to assess for additional PEs. She is in agreement with this plan. 03/02/18 15:54 ECHO ordered as well to rule out strain or RV dysfunction 03/02/18 16:03 The CTA of the chest was negative for PE. Prior PE's resolved 03/02/18 17:09 Normal troponin 03/02/18 17:29 The ECHO is normal per Dr Youngblood. No strain or RV dysfunction. 03/02/18 17:44 The case was discussed with contact lens lathe operator for DR Malave, Dr Mulligan. We discussed the labs, EKG, CTA, ECHO. No signs of bleeding. Given the nose bleed as well this could be the source as well. The patient and I discussed the results, DC home, close follow up calling her doctor tomorrow to discuss the ER visit, her Eliquis , and oil heaterman anticoagulation plan. There has been no sign of bleeding in the ED and none since 7am this AM. 03/02/18 17:50 HR when I was in the room was 92. Medical Decision Making - Lab Data Result diagrams: 03/02/18 14:45 03/02/18 14:45 Disposition Disposition: Discharge Clinical Impression: Hemoptysis, Epistaxis Disposition: Home, Self-Care Condition: (1) Good Instructions: Hemoptysis (ED), Apixaban (By mouth) Additional Instructions: Call Dr Malave tomorrow to discuss this ER visit Return if you have any shortness of breath, cough up any more blood or any new concerns Forms: Patient Portal Access Time of Disposition: 17:49 Quality - Quality Measures Quality Measures: N/A - Blood Pressure Screening Does Patient Have Any of the Following: No Blood Pressure Classification: Hypertensive Reading Systolic Measurement: 154 Diastolic Measurement: 98 Screening for High Blood Pressure: < Pre-Hypertensive BP, F/U Documented > [ G8950] Pre-Hypertensive Follow-up Interventions: Referral to alternative/primary care provider.
[2018-03-02 14:53] LABS: BASO % 0.6 % (0-6); EOS % 0.6 % (0-6); GRAN % 54.6 % (47-80); HEMATOCRIT 40.6 % (35.0-47.0); HEMOGLOBIN 13.5 gm/dl (11.6-16.0); LYMPH % 35.3 % (16-45); MEAN CELL VOLUME 82.9 fl (81-97); MEAN CORPUSCULAR HEMOGLOBIN 27.6 pg (27-33); MEAN CORPUSCULAR HGB CONC 33.3 g/dl (32-36); MEAN PLATELET VOLUME 10.6 fl (7.4-10.4); MONO % 8.9 % (0-9); PLATELET COUNT 343 K/uL (130-400); RED CELL DISTRIBUTION WIDTH 13.7 % (11.5-14.5)
[2018-03-02 15:13] LABS: BLOOD UREA NITROGEN 8 mg/dL (6-20); EST GLOMERULAR FILTRATION RATE > 60 mL/min; INR 1.1; PARTIAL THROMBOPLASTIN TIME 27.3 SECONDS (24.5-39.1); PROTHROMBIN TIME (PATIENT) 10.7 SECONDS (9.5-12.1)
[2018-03-02 15:16] LABS: GLUCOSE,RANDOM 78 mg/dL (74-109)
--- NOTE | 2018-03-03 19:40 | CT ANGIOGRAM REPORT ---
EXAM: CT ANGIOGRAM CHEST CTA w contrast HISTORY: COUGH, HEMOPTYSIS. TECHNIQUE: CT angiogram of the chest performed with 73 mL Omnipaque-300 intravenous contrast. Additional maximum-intensity projection images were constructed on an independent workstation. COMPARISON: CTA chest 02/13/2018. FINDINGS: The left lower lobe emboli identified on the previous CT angiogram are no longer clearly seen. No new pulmonary artery filling defects to suggest additional emboli. Thoracic aorta is of normal course and caliber. No evidence of aneurysm or dissection. No significant pericardial fluid collection. No lymphadenopathy. A calcified mediastinal lymph node is noted. Central airways are clear. No focal pulmonary consolidation. Left upper lobe calcified granuloma is noted. No pleural effusion or pneumothorax. Visualized upper abdominal structures appear unremarkable. No definite acute osseous abnormalities. IMPRESSION: 1. NO EVIDENCE OF PULMONARY EMBOLISM. PREVIOUSLY IDENTIFIED SMALL LEFT LOWER LOBE EMBOLI ARE NO LONGER SEEN. 2. NO ACUTE INTRATHORACIC FINDINGS. JOB NUMBER: [id number] MTDD
== END 2018-03-02 18:05 | disposition home or self-care (01) ==
LOC: ER 14:24
DX: R04.2 Hemoptysis (principal); R04.0 Epistaxis; R07.89 Other chest pain; I26.99 Other pulmonary embolism without acute cor pulmonale; Z79.01 Long term (current) use of anticoagulants
CPT/HCPCS: 99284 ×2; 85025; 85730; 85610; 80048; 84703; 84484; 71275; 93005; 93010; 93306; Q9967

== ENCOUNTER 2018-06-12 11:35 | Emergency (ER) | payer BC, MEDICAID ==
--- NOTE | 2018-06-12 12:08 | Emergency Department Record ---
History of Present Illness - General Chief Complaint: Wound, check Stated Complaint: RED SPOT UPPER R ARM Time Seen by Provider: 06/12/18 11:58 Source: Patient Mode of arrival: Ambulatory Limitations: No limitations - History of Present Illness Initial Comments: The patient is here due to a red spot on her R upper arm for 2 days. The patient states she had an immunization for Varicella in that same spot 3 days ago and then 2 days ago developed a raised local irritated area at the site. Since the area has slowly worsened and now is mildly painful and very pruritic. She denies any fever, chills, CP, SOB, or PABLITO. The patient has had Chicken Pox in the past but since she was unable to get her titer checked she was told she needed the vaccine. MD Complaint: Other Onset/Timin -: Days(s) - Related Data Home Medications Medication Instructions Recorded Confirmed Last Taken Apixaban [Eliquis] 5 mg PO BID 06/12/18 06/12/18 Unknown Phentermine HCl 37.5 mg PO DAILY 06/12/18 06/12/18 Unknown Previous Rx's Medication Instructions Recorded Cephalexin [Keflex] 500 mg PO TID #21 cap 06/12/18 Allergies Allergy/AdvReac Type Severity Reaction Status Date / Time No Known Drug Allergies Allergy Verified 02/13/18 12:32 Travel Screening - Travel/Exposure Within Last 30 Days Have you traveled within the last 30 days?: No - Travel/Exposure Within Last Year Have you traveled outside the [place] in the last year?: No - Additonal Travel Details Have you been exposed to anyone with a communicable illness?: No - Travel Symptoms Symptom Screening: None Review of Systems Constitutional: Denies: Chills, Fever Eyes: Denies: Eye discharge ENT: Denies: Congestion Respiratory: Denies: Cough, Dyspnea Past Medical History - SOCIAL HISTORY Smoking Status: Never smoker Alcohol Use: None Drug Use: None - RESPIRATORY Hx Respiratory Disorders: Yes Hx Pulmonary Embolism: Yes - CARDIOVASCULAR Hx Cardio Disorders: Yes Hx Palpitations: Yes - NEURO Hx Neuro Disorders: Yes Hx Headaches: Yes - GI Hx GI Disorders: No - Hx Genitourinary Disorders: No - ENDOCRINE Hx Endocrine Disorders: No Hx Diabetes: No Hx Thyroid Disease: No - MUSCULOSKELETAL Hx Musculoskeletal Disorders: No - PSYCH Hx Psych Problems: Yes Hx Anxiety: Yes - HEMATOLOGY/ONCOLOGY Hx Hematology/Oncology Disorders: Yes Hx Clotting Problems: Yes Comment:: pulmonary embolisms Family Medical History Any Significant Family History?: No Hx Diabetes: Mother, Grandparents Hx Heart Disease: Mother, Grandparents Hx HTN: Father Hx Resp Disorders: Grandparents Physical Exam - General General Appearance: Alert, Oriented x3, Cooperative, No acute distress - Head Head exam: Atraumatic, Normocephalic, Normal inspection - Eye Eye exam: Normal appearance, PERRL - Neck Neck exam: Normal inspection, Full ROM. negative: Tenderness - Respiratory Respiratory exam: Normal lung sounds bilaterally. negative: Respiratory distress - Cardiovascular Cardiovascular Exam: Regular rate, Normal rhythm, Normal heart sounds, Tachycardia (very mildly.). negative: Diastolic murmur, Systolic murmur - Extremities Extremities exam: Full ROM. negative: Normal inspection (There is a 6x6 cm area of erythema, slight warmth and mild tenderness to the R lateral upper arm at the vaccination site. ), Joint swelling Course Vital Signs 06/12/18 11:53 Temperature 98.3 F Pulse Rate 112 H Respiratory 16 Rate Blood Pressure 144/80 Pulse Ox 99 - Reevaluation(s) Reevaluation #1: I did discuss the fact that most likely the patient is having a local reaction to the vaccine due to the fact she has had Varicella in the past. She also has had cellulitis in the past so due to not knowing for sure what she has we will treat with Keflex also. She is encouraged to get her titer checked prior to any further vaccinations. 06/12/18 12:13 Disposition Disposition: Discharge Clinical Impression: Local skin infection Disposition: Home, Self-Care Condition: (2) Stable Instructions: Wound Infection (ED) Additional Instructions: Please use an OTC antihistamine for 5-7 days and also take the Keflex. Use warm compresses on the R arm area during the day. Please see your family doctor if not better in 2 days and return to the ER for any worsening symptoms. Prescriptions: Cephalexin [Keflex] 500 mg PO TID #21 cap Forms: Patient Portal Access Time of Disposition: 12:08 Quality - Quality Measures Quality Measures: N/A - Blood Pressure Screening View Details: Yes Does Patient Have Any of the Following: No Blood Pressure Classification: Pre-Hypertensive BP Reading Systolic Measurement: 144 Diastolic Measurement: 80 Screening for High Blood Pressure: < Pre-Hypertensive BP, F/U Documented > [ G8950] Pre-Hypertensive Follow-up Interventions: Referral to alternative/primary care provider.
== END 2018-06-12 12:18 | disposition home or self-care (01) ==
LOC: ER 11:35
DX: L08.9 Local infection of the skin and subcutaneous tissue, unspecified (principal)
CPT/HCPCS: 99282

== ENCOUNTER 2018-09-26 16:27 | Emergency (ER) | payer BC, MEDICAID ==
--- NOTE | 2018-09-26 17:23 | Emergency Department Record ---
History of Present Illness - General Chief Complaint: Shortness of breath Stated Complaint: PABLITO Time Seen by Provider: 09/26/18 17:19 Source: Patient Mode of Arrival: Ambulatory Limitations: No limitations - History of Present Illness Initial Comments: 23 yo female presents with a feeling of shortness of breath and discomfort with deep inspiration. She does have a history of prior PE. She was treated with Eliquis. She has since been taken off Eliquis about a month ago. The current symptoms started yesterday. She has a discomfort at the end of her inspiration. No cough. The sensation does make her feel somewhat short of breath. She has seen a specialist and states the cause of her PE was not certain. MD Complaint: Chest pain (Hurts to breath), Shortness of breath Onset/Timin -: Days(s) Radiation: Other (none) Severity: Moderate Quality: Aching Improves With: Nothing Worsens With: Nothing Known History Of: DVT, Other Associated Symptoms: Chest pain, Other Treatments Prior to Arrival: None - Related Data Allergies Allergy/AdvReac Type Severity Reaction Status Date / Time No Known Drug Allergies Allergy Verified 09/26/18 17:18 Travel Screening - Travel/Exposure Within Last 30 Days Have you traveled within the last 30 days?: No - Travel/Exposure Within Last Year Have you traveled outside the [place] in the last year?: No - Additonal Travel Details Have you been exposed to anyone with a communicable illness?: No - Travel Symptoms Symptom Screening: None Review of Systems Constitutional: Denies: Chills, Fever, Malaise, Weakness Eyes: Denies: Eye discharge ENT: Denies: Congestion, Ear pain, Epistaxis, Throat pain Respiratory: Reports: Dyspnea. Denies: Cough, Hemoptysis, Stridor, Wheezes Cardiovascular: Reports: Chest pain. Denies: Dyspnea on exertion, Edema, Palpitations, Syncope Endocrine: Denies: Fatigue Gastrointestinal: Denies: Abdominal pain, Diarrhea, Nausea, Vomiting Genitourinary: Denies: Dysuria, Urgency Musculoskeletal: Denies: Arthralgia, Back pain, Joint swelling, Myalgia Skin: Denies: Bruising, Change in color, Rash Neurological: Denies: Headache, Numbness, Weakness Psychiatric: Denies: Anxiety Hematological/Lymphatic: Denies: Easy bleeding, Easy bruising Past Medical History - SOCIAL HISTORY Smoking Status: Never smoker Alcohol Use: Occasional Drug Use: None - RESPIRATORY Hx Respiratory Disorders: Yes Hx Pulmonary Embolism: Yes - CARDIOVASCULAR Hx Cardio Disorders: Yes Hx Palpitations: Yes - NEURO Hx Neuro Disorders: Yes Hx Headaches: Yes - GI Hx GI Disorders: No - Hx Genitourinary Disorders: No - ENDOCRINE Hx Endocrine Disorders: No Hx Diabetes: No Hx Thyroid Disease: No - MUSCULOSKELETAL Hx Musculoskeletal Disorders: No - PSYCH Hx Psych Problems: Yes Hx Anxiety: Yes - HEMATOLOGY/ONCOLOGY Hx Hematology/Oncology Disorders: Yes Hx Clotting Problems: Yes Comment:: pulmonary embolisms Family Medical History Any Significant Family History?: No Hx Diabetes: Mother, Grandparents Hx Heart Disease: Mother, Grandparents Hx HTN: Father Hx Resp Disorders: Grandparents Physical Exam - General General Appearance: Alert, Oriented x3, Cooperative, No acute distress Limitations: No limitations - Head Head exam: Atraumatic, Normal inspection - Eye Eye exam: Normal appearance, PERRL. negative: Conjunctival injection, Scleral icterus - ENT ENT exam: Normal exam, Mucous membranes moist Ear exam: Normal external inspection Nasal Exam: Normal inspection Mouth exam: Normal external inspection - Neck Neck exam: Normal inspection. negative: Lymphadenopathy, Tenderness - Respiratory Respiratory exam: Normal lung sounds bilaterally. negative: Accessory muscle use, Chest wall tenderness, Decreased breath sounds, Prolonged expiratory, Respiratory distress, Rhonchi, Stridor, Wheezes - Cardiovascular Cardiovascular Exam: Regular rate, Normal rhythm, Normal heart sounds Peripheral Pulses: 2+: Radial (R), Radial (L) - GI/Abdominal GI/Abdominal exam: Soft. negative: Tenderness - Rectal Rectal exam: Deferred - exam: Deferred - Extremities Extremities exam: Normal inspection. negative: Calf tenderness, Pedal edema, Tenderness - Back Back exam: Denies: CVA tenderness (R), CVA tenderness (L) - Neurological Neurological exam: Alert, Oriented X3. negative: Altered - Psychiatric Psychiatric exam: Normal affect, Normal mood. negative: Agitated, Anxious - Skin Skin exam: Dry, Intact, Normal color, Warm Course Vital Signs 09/26/18 17:11 Temperature 99.1 F Pulse Rate 86 Respiratory 20 Rate Blood Pressure 120/76 Pulse Ox 100 - Reevaluation(s) Reevaluation #1: 09/26/18 17:34 EKG #1: 17:25 Rate: 76 Rhythm: sinus Jackson: normal Intervals: normal ST segments: normal Normal EKG 09/26/18 19:09 The CTA of the chest was reviewed It is normal without acute findings. We discussed the results No acute indication to anti-coagulate. She had prior ECHO earlier this year that was normal I recommend continued close follow up with her PCP Medical Decision Making - Lab Data Result diagrams: 09/26/18 17:30 09/26/18 17:30 Disposition Disposition: Discharge Clinical Impression: Pleurisy Disposition: Home, Self-Care Condition: (1) Good Instructions: Pleurisy (ED), Dyspnea (ED) Additional Instructions: Call your doctor for the next available follow up appointment this week to discuss the symptoms Review this ER visit and the tests performed with your family doctor Return to the ER for a recheck if worse, any new concerns or questions Forms: Patient Portal Access Time of Disposition: 19:10 Quality - Quality Measures Quality Measures: N/A - Blood Pressure Screening Does Patient Have Any of the Following: No Blood Pressure Classification: Pre-Hypertensive BP Reading Systolic Measurement: 120 Diastolic Measurement: 76 Screening for High Blood Pressure: < Pre-Hypertensive BP, F/U Documented > [G8950] Pre-Hypertensive Follow-up Interventions: Referral to alternative/primary care provider.
[2018-09-26 17:36] LABS: BASO % 0.4 % (0-6); EOS % 0.8 % (0-6); GRAN % 62.3 % (47-80); HEMOGLOBIN 14.4 gm/dl (11.6-16.0); LYMPH % 28.3 % (16-45); MEAN CELL VOLUME 83.5 fl (81-97); MEAN CORPUSCULAR HEMOGLOBIN 27.3 pg (27-33); MEAN CORPUSCULAR HGB CONC 32.7 g/dl (32-36); MEAN PLATELET VOLUME 11.3 fl (7.4-10.4); MONO % 8.2 % (0-9); PLATELET COUNT 273 K/uL (130-400); RED BLOOD COUNT 5.27 M/uL (3.80-5.40); RED CELL DISTRIBUTION WIDTH 13.5 % (11.5-14.5); WHITE BLOOD COUNT W/O DIFF 7.1 K/uL (4.2-12.2)
[2018-09-26 17:37] LABS: URINE APPEARANCE CLEAR; URINE BILIRUBIN NEGATIVE (NEGATIVE); URINE BLOOD TRACE-I (NEGATIVE); URINE COLOR YELLOW; URINE GLUCOSE (UA) NEGATIVE (NEGATIVE); URINE KETONE NEGATIVE (NEGATIVE); URINE LEUKOCYTE ESTERASE NEGATIVE (NEGATIVE); URINE NITRITE NEGATIVE (NEGATIVE); URINE PROTEIN NEGATIVE (NEGATIVE)
[2018-09-26 17:50] LABS: HCG,QUALITATIVE URINE NEGATIVE (NEGATIVE); URINE RBC 0 - 2 (NONE SEEN); URINE WBC NONE SEEN (0-2/hpf)
[2018-09-26 17:55] LABS: BLOOD UREA NITROGEN 7 mg/dL (6-20); CREATININE 0.6 mg/dL (0.5-0.9); EST GLOMERULAR FILTRATION RATE > 60 mL/min
[2018-09-26 17:56] LABS: TOTAL PROTEIN 7.9 g/dL (6.6-8.7)
[2018-09-26 17:58] LABS: GLUCOSE,RANDOM 72 mg/dL (74-109)
[2018-09-26 18:00] LABS: ALT/SGPT 15 U/L (<33); AST/SGOT 17 U/L (10.0-35.0)
[2018-09-26 18:01] LABS: ALB/GLOB RATIO 1.5 (1.1-1.8); ALBUMIN 4.8 g/dL (4.0-5.0); ALKALINE PHOSPHATASE 115 U/L (35-104)
--- NOTE | 2018-09-27 13:59 | CT ANGIOGRAM REPORT ---
EXAM: CTA OF THE CHEST FOR PE WITH POST PROCESSING HISTORY: PLEURITIC CHEST PAIN AND SHORTNESS OF BREATH, POSSIBLE PE. TECHNIQUE: CTA of the chest was performed following IV contrast media administration. Post processing on an independent workstation was performed with multiple 3D MIP series obtained. A preliminary report was provided by [facility]. Please see the medical record for IV contrast specifics. Comparison: Prior chest CTA 03/02/18. FINDINGS: No definite PE identified. No thoracic aortic aneurysm evident. No definite pleural or pericardial effusion evident. Calcified granuloma in the left upper lobe again seen with calcified left sided mediastinal nodes in the AP window as before consistent with old granulomatous disease. Probable tiny nonobstructing calculus upper pole left kidney. This is seen on image 209 of 217. No pneumothorax evident. No definite acute infiltrate. IMPRESSION: 1. NO DEFINITE PE IDENTIFIED. 2. CALCIFIED GRANULOMA LEFT UPPER LOBE WITH CALCIFIED AP WINDOW MEDIASTINAL NODES CONSISTENT WITH OLD GRANULOMATOUS DISEASE. 3. PROBABLE TINY NONOBSTRUCTING CALCULUS UPPER POLE LEFT KIDNEY. JOB NUMBER: [id number] MTDD
== END 2018-09-26 19:25 | disposition home or self-care (01) ==
LOC: ER 16:27
DX: R09.1 Pleurisy (principal); R06.02 Shortness of breath; R07.9 Chest pain, unspecified; R42 Dizziness and giddiness; Z86.711 Personal history of pulmonary embolism
CPT/HCPCS: 71275; 80053; 81001; 81025; 85025; 93005; 93010; 99284